=== PATIENT | male | born 1960 | race Two or more races ===

== ENCOUNTER 2023-08-03 10:17 | Inpatient (IN) | payer BC ==
[~2023-08-03] VITALS: Ht 170.2 cm; Wt 93.7 kg
[2023-08-03] VITALS (11 sets, daily range): BP systolic 89–97; BP diastolic 59–70; PULSE 58–78; RESP 13–20; TEMP 98–98.5; O2SAT 94–98
[2023-08-03] MEDS ORDERED: SODIUM CHLORIDE 0.9% 1,000 ML IV ONE (10:45)
[2023-08-03] MEDS ORDERED: TICAGRELOR 90 MG TAB PO ONE (10:45)
[2023-08-03] MEDS ORDERED: ASPirin 81 mg TAB PO ONE (10:45)
[2023-08-03] MEDS ORDERED: ONDANSETRON HCL 4 MG/2 ML VIAL IV ONE (10:45)
[2023-08-03] MEDS ORDERED: ENOXAPARIN SOD 100 MG/1 ML SYRINGE SC ONE (10:45)
[2023-08-03] MEDS ORDERED: HEPARIN SODIUM (PORCINE) 5000 UNITS/ML 1ML VIAL ONE (11:00)
[2023-08-03] MEDS ORDERED: HEPARIN SODIUM (PORCINE) 5000 UNITS/ML 1ML VIAL IV ONE (11:00)
[2023-08-03] MEDS ORDERED: CLOPIDOGREL BISULFATE 75 MG TAB PO ONE (11:00)
[2023-08-03] MEDS ORDERED: CLOPIDOGREL BISULFATE 75 MG TAB ONE (11:01)
[2023-08-03] MEDS ORDERED: CLOPIDOGREL 300 MG TAB ONE (11:02)
[2023-08-03] MEDS ORDERED: LIDOCAINE 2%HCL (LOCAL ANESTH.) INJ 20ML MDV ONE (11:08)
[2023-08-03] MEDS ORDERED: IODIXANOL 320MG/ML 100ML BTL IV ONE (11:08)
[2023-08-03 11:12] LABS: Basophils # (auto) 0.1 10 ^3/uL (0-0.2); Basophils % (auto) 0.4 % (0.0-2.0); Eosinophils # (auto) 0.2 10 ^3/uL (0-0.8); Eosinophils % (auto) 1.2 % (0.0-7.0); Hematocrit 42.5 % (41.0-53.0); Hemoglobin 14.5 g/dL (13.5-17.5); Lymphocytes # (auto) 2.1 10 ^3/uL (0.4-5.4); Lymphocytes % (auto) 13.1 % (10.0-50.0); Mean Corpuscular Hemoglobin 30.8 pg (28.0-32.0); Mean Corpuscular Hgb Conc. 34.3 g/dL (32.0-36.0); Monocytes # (auto) 0.9 10 ^3/uL (0-1.3); Monocytes % (auto) 6.1 % (0.0-12.0); Neutrophils # (auto) 12.4 10 ^3/uL (1.6-8.6); Neutrophils % (auto) 79.2 % (37.0-80.0); Red Blood Cells 4.72 10^6/uL (4.5-5.90); Red Cell Distribution Width 13.3 % (11.8-14.3); White Blood Cell 15.6 10^3/uL (4.4-10.8)
[2023-08-03] MEDS ORDERED: HEPARIN DRIP/D5W 100UNITS/ML 250 ML IV SCH (11:15)
[2023-08-03] MEDS ORDERED: HEPARIN DRIP/D5W 100UNITS/ML 250 ML IV ONE (11:22)
[2023-08-03 11:26] LABS: INR 1.05 (0.9-1.15); Partial Thromboplastin Time 28.8 SEC (24.5-34.5)
[2023-08-03] MEDS ORDERED: ANGIOMAX 250 MG VIAL IV ONE (11:30)
[2023-08-03] MEDS ORDERED: MIDAZOLAM HCL 2MG/2ML 2ml VIAL (1mg/ml) ONE (11:30)
[2023-08-03] MEDS ORDERED: fentaNYL CITRATE 100 MCG/2 ML VL ONE (11:30)
[2023-08-03] MEDS ORDERED: VERAPAMIL 2.5MG/ML INJ 2ML VIAL IV ONE (11:30)
[2023-08-03] MEDS ORDERED: SODIUM CHL 0.9% 50 ML ONE (11:31)
[2023-08-03 11:35] LABS: Alanine Aminotransferase 43 U/L (7-40); Albumin 4.3 g/dL (3.2-4.8); Alkaline Phosphatase 86 U/L (46-116); Anion Gap 9 (5-15); Aspartate Aminotransferase 282 U/L (13-40); BUN/Creatinine Ratio 8.6 (10.0-20.0); Bilirubin, Total 1.3 mg/dL (0.2-1.0); Blood Urea Nitrogen 7 mg/dL (9-23); Calcium 9.3 mg/dL (8.5-10.1); Carbon Dioxide 26 mmol/L (20-30); Chloride 101 mmol/L (98-107); Glucose 199 mg/dL (74-106); Potassium 4.2 mmol/L (3.5-5.1); Sodium 136 mmol/L (136-145); Total Protein 7.3 g/dL (5.7-8.2)
[2023-08-03] MEDS ORDERED: ATROPINE SULF 1 MG/10ml SYR ONE (11:41)
[2023-08-03 12:23] LABS: Magnesium 1.8 mg/dL (1.6-2.6)
[2023-08-03 12:25] LABS: Triglycerides 73 mg/dL (< 150)
[2023-08-03 12:26] LABS: LDL Cholesterol 58 mg/dL (< 100)
[2023-08-03 12:27] LABS: Cholesterol 114 mg/dL (< 200); HDL Cholesterol 43 mg/dL (40-59)
[2023-08-03] MEDS ORDERED: NITROGLYCERIN 0.4 MG SL TAB SL PRN (14:30)
[2023-08-03] MEDS ORDERED: MORPHINE SULFATE INJ 2 MG/ml SYRG IV PRN (14:30)
[2023-08-03] MEDS ORDERED: ALBUTEROL SULF 2.5 MG/0.5ML(0.5%) NEB SOLN NEB PRN (14:45)
[2023-08-03] MEDS ORDERED: DEXTROSE (50%) 50ML SYRG IV PRN (14:45)
[2023-08-03] MEDS ORDERED: LISI-275 PO (15:23)
[2023-08-03] MEDS ORDERED: METF-370 PO (15:23)
[2023-08-03] MEDS ORDERED: ATOR10TA52 PO (15:23)
[2023-08-03] MEDS ORDERED: FLUT45AE2 (15:45)
[2023-08-03] MEDS ORDERED: ALBU108A5 INH (15:46)
[2023-08-03] MEDS: ACCU-CHEK COMFORT CURVE STRIP VI SCH ×2 (17:09→22:00)
[2023-08-03] MEDS: InsuLIN REG 1unit/0.01ml Soln (100units/ml) SC SCH ×2 (17:10→21:40)
[2023-08-03] MEDS: SODIUM CHLORIDE 0.9% 1,000 ML IV SCH (18:00)
[2023-08-03] MEDS ORDERED: SODIUM CHLORIDE 0.9% 250 ML IV ONE ×2 (18:00→18:15)
[2023-08-03] MEDS ORDERED: ATORVASTATIN 20 MG TAB PO SCH (22:00)
[2023-08-04] VITALS (9 sets, daily range): BP systolic 92–112; BP diastolic 55–72; PULSE 67–97; RESP 20–21; TEMP 36.7; O2SAT 96–99
[2023-08-04] MEDS: InsuLIN REG 1unit/0.01ml Soln (100units/ml) SC SCH ×3 (06:14→17:00)
[2023-08-04] MEDS: ACCU-CHEK COMFORT CURVE STRIP VI SCH ×3 (06:31→17:00)
[2023-08-04 07:20] LABS: Basophils # (auto) 0.1 10 ^3/uL (0-0.2); Eosinophils # (auto) 0.6 10 ^3/uL (0-0.8); Eosinophils % (auto) 5.4 % (0.0-7.0); Hematocrit 36.8 % (41.0-53.0); Hemoglobin 12.6 g/dL (13.5-17.5); Lymphocytes # (auto) 2.2 10 ^3/uL (0.4-5.4); Lymphocytes % (auto) 20.8 % (10.0-50.0); Mean Corpuscular Hemoglobin 30.6 pg (28.0-32.0); Mean Corpuscular Hgb Conc. 34.1 g/dL (32.0-36.0); Mean Corpuscular Volume 89.6 fL (80.0-100.0); Monocytes # (auto) 1.1 10 ^3/uL (0-1.3); Monocytes % (auto) 9.9 % (0.0-12.0); Neutrophils # (auto) 6.8 10 ^3/uL (1.6-8.6); Neutrophils % (auto) 62.9 % (37.0-80.0); Red Blood Cells 4.11 10^6/uL (4.5-5.90); Red Cell Distribution Width 13.2 % (11.8-14.3); White Blood Cell 10.8 10^3/uL (4.4-10.8)
[2023-08-04 07:40] LABS: Alanine Aminotransferase 42 U/L (7-40); Albumin 3.7 g/dL (3.2-4.8); Alkaline Phosphatase 67 U/L (46-116); Anion Gap 6 (5-15); Aspartate Aminotransferase 206 U/L (13-40); BUN/Creatinine Ratio 9.9 (10.0-20.0); Blood Urea Nitrogen 7 mg/dL (9-23); Calcium 8.6 mg/dL (8.5-10.1); Carbon Dioxide 26 mmol/L (20-30); Chloride 107 mmol/L (98-107); Glucose 136 mg/dL (74-106); Potassium 4.1 mmol/L (3.5-5.1); Sodium 139 mmol/L (136-145)
[2023-08-04 07:41] LABS: Bilirubin, Total 1.7 mg/dL (0.2-1.0); Total Protein 6.1 g/dL (5.7-8.2)
[2023-08-04] MEDS ORDERED: SODIUM CHLORIDE 0.9% 1,000 ML IV SCH (08:00)
[2023-08-04] MEDS: SODIUM CHLORIDE 0.9% 1,000 ML IV SCH (09:49)
[2023-08-04] MEDS ORDERED: ASPirin 81 mg TAB PO SCH (10:00)
[2023-08-04] MEDS ORDERED: CLOPIDOGREL BISULFATE 75 MG TAB PO SCH (10:00)
[2023-08-04] MEDS ORDERED: ALBU108A5 IN (11:53)
[2023-08-04] MEDS ORDERED: FLUT45AE2 IN (11:53)
[2023-08-04] MEDS ORDERED: SODIUM CHLORIDE 0.9% 500 ML IV ONE (13:00)
[2023-08-04] MEDS ORDERED: ATOR20TA50 PO (13:34)
[2023-08-04] MEDS ORDERED: CLOP75TA70 PO (13:34)
[2023-08-04] MEDS ORDERED: ASPI-325 PO (13:34)
[2023-08-04] MEDS ORDERED: ATORVASTATIN 20 MG TAB PO SCH (22:00)
[2023-08-05] MEDS ORDERED: METOPROLOL SUCCINATE XL 50 MG TAB PO SCH (10:00)
[2023-08-05] MEDS ORDERED: LISINOPRIL 5 MG TAB PO SCH (10:00)
== END 2023-08-04 17:15 | disposition home or self-care (01) | DRG 321 ==
LOC: ER 10:17 → TELE 14:32 → TELE-CENTR 15:00
PROVIDERS: ADMIT Internal Medicine; ATTEND Internal Medicine
PROC: 027034Z Dilation of Coronary Artery, One Artery with Drug-eluting Intraluminal Device, Percutaneous Approach (ICD-10-PCS; principal; 2023-08-03)
PROC: B211YZZ Fluoroscopy of Multiple Coronary Arteries using Other Contrast (ICD-10-PCS; 2023-08-03)
PROC: 4A023N7 Measurement of Cardiac Sampling and Pressure, Left Heart, Percutaneous Approach (ICD-10-PCS; 2023-08-03)
DX: I21.19 ST elevation (STEMI) myocardial infarction involving other coronary artery of inferior wall (principal); I50.31 Acute diastolic (congestive) heart failure; J44.9 Chronic obstructive pulmonary disease, unspecified; E78.5 Hyperlipidemia, unspecified; E11.9 Type 2 diabetes mellitus without complications; I11.0 Hypertensive heart disease with heart failure
CPT/HCPCS: 36415; 71045; 80053; 80061; 82962; 83036; 83735; 83880; 84443; 84484; 85025; 85610; 85730; 87040; 92941; 93005; 93306; 93458; 96361; 96374; 99152; 99291; G0378; J1815; J2250; Q9967